=== PATIENT | male | born 1990 | race American Indian/Alaskan Native ===

== ENCOUNTER 2017-09-09 18:52 | Emergency (ER) | payer SELFPAY ==
[2017-09-09 19:22] VITALS: BP 139/89
== END 2017-09-10 02:38 | disposition left against medical advice (07) ==
LOC: ED 18:52
DX: S00.561A Insect bite (nonvenomous) of lip, initial encounter (principal); Z53.21 Procedure and treatment not carried out due to patient leaving prior to being seen by health care provider; W57.XXXA Bitten or stung by nonvenomous insect and other nonvenomous arthropods, initial encounter; Y93.89 Activity, other specified; Y92.89 Other specified places as the place of occurrence of the external cause; Y99.8 Other external cause status